=== PATIENT | male | born 1965 | race African-American/Black ===

== ENCOUNTER 2016-06-13 21:43 | Emergency (ER) | payer MEDICAID, OTHER ==
[~2016-06-13] VITALS: Ht 172.7 cm; Wt 75.0 kg
[~2016-06-13 21:43] MED LIST: PROT40 PO
[2016-06-13 23:00] VITALS: BP 115/70
[2016-06-13 23:22] LABS: HEMATOCRIT. 29.7 % (42.0-52.0); HEMOGLOBIN. 10.1 g/dL (14.0-18.0); MEAN CORPUSCULAR HEMOGLOBIN 32.7 pg (28.0-32.0); MEAN CORPUSCULAR HGB CONC 33.9 g/dL (31.0-37.0); MEAN CORPUSCULAR VOLUME 96.4 fL (80.0-94.0); MEAN PLATELET VOLUME 7.3 fl (7.4-10.4); PLATELET 149 x1000/uL (130-400); RED BLOOD CELL COUNT 3.08 mill/uL (4.7-6.1); RED CELL DISTRIBUTION WIDTH 17.6 % (11.6-14.6); WHITE BLOOD COUNT 6.9 x1000/uL (4.5-11.0)
[2016-06-13 23:23] LABS: DIFFERENTIAL COMMENT 1
[2016-06-13 23:36] LABS: ALANINE AMINOTRANSFERASE 36 IU/L (13-61); ANION GAP 11; CALCIUM 8.7 mg/dL (8.5-10.1); CARBON DIOXIDE 29 mEq/L (21-32); CHLORIDE 105 mEq/L (98-107); INDEX HEMOLYSI 1 (1-3); INDEX ICTERIC 2 (1-4); INDEX LIPEMIC 1 (1-3); eGFR > 60 mL/min (>60)
[2016-06-13 23:55] LABS: UREA NITROGEN BLOOD 3 mg/dL (7-21)
[2016-06-13 23:58] LABS: CLARITY URINE CLEAR (CLEAR); COLOR URINE DARK YELLOW (YELLOW); GLUCOSE URINE NEGATIVE (NEGATIVE); KETONES URINE TRACE (NEGATIVE); LEUKOCYTE ESTERASE URINE TRACE (NEGATIVE); NITRITE URINE NEGATIVE (NEGATIVE); OCCULT BLOOD URINE NEGATIVE (NEGATIVE); PROTEIN URINE NEGATIVE (NEGATIVE); SPECIFIC GRAVITY URINE 1.021 (1.005-1.030)
[2016-06-14] MEDS ORDERED: POTASSIUM CHLORIDE 20 MEQ/PACKET PO ONE (00:30)
[2016-06-14 00:45] LABS: SQUAMOUS EPITHELIAL CELL URINE FEW /lpf (RARE/1+)
[2016-06-14 00:46] LABS: BACTERIA URINE NONE SEEN; RBC URINE 0-2 /hpf (0-2); WBC URINE 0-2 /hpf (0-2)
[2016-06-14 02:52] LABS: PLATELET ESTIMATE NORMAL
== END 2016-06-14 01:30 | disposition home or self-care (01) ==
LOC: ER 21:44
DX: M25.512 Pain in left shoulder (principal); R53.1 Weakness; M25.562 Pain in left knee; M25.561 Pain in right knee; E87.6 Hypokalemia
CPT/HCPCS: 36415; 80053; 81001; 85025; 99284

== ENCOUNTER 2016-07-14 12:22 | Emergency (ER) | payer MEDICAID ==
[~2016-07-14] VITALS: Ht 160 cm; Wt 61.0 kg
[2016-07-14 13:09] VITALS: BP 115/69
== END 2016-07-14 15:47 | disposition home or self-care (01) ==
LOC: ER 14:36
DX: L30.9 Dermatitis, unspecified (principal); G89.29 Other chronic pain; M25.572 Pain in left ankle and joints of left foot; M25.571 Pain in right ankle and joints of right foot; D64.9 Anemia, unspecified; F17.210 Nicotine dependence, cigarettes, uncomplicated
CPT/HCPCS: 99283

== ENCOUNTER 2016-08-02 12:37 | Emergency (ER) | payer MEDICAID ==
[~2016-08-02] VITALS: Ht 172.7 cm; Wt 70.0 kg
[2016-08-02 13:39] VITALS: BP 122/67
[2016-08-02] MEDS ORDERED: MIDAZOLAM HCL 2 MG/2 ML VIAL ONE (16:26)
[2016-08-02] MEDS ORDERED: FENTANYL CITRATE/PF 50MCG/ML 2ML VIAL ONE (16:26)
[2016-08-02] MEDS ORDERED: LABETALOL HCL 5MG/ML VIAL 20ML IV ONE (16:27)
[2016-08-02] MEDS ORDERED: VECURONIUM BROMIDE 10 MG/VIAL IV ONE (16:28)
[2016-08-02] MEDS ORDERED: SODIUM CHLORIDE 0.9% 10ML VIAL ONE (16:28)
== END 2016-08-02 18:17 | disposition home or self-care (01) ==
LOC: ER 12:37
DX: L20.9 Atopic dermatitis, unspecified (principal); R20.0 Anesthesia of skin; R20.2 Paresthesia of skin; F17.210 Nicotine dependence, cigarettes, uncomplicated
CPT/HCPCS: 99283; A4216; J2250; J3010; J3490

== ENCOUNTER 2016-12-31 18:44 | Inpatient (IN) | payer MEDICAID, OTHER ==
[2016-12-31] VITALS (7 sets, daily range): BP systolic 126–150; BP diastolic 55–85
[~2016-12-31] VITALS: Ht 172.7 cm; Wt 64.4 kg
[2016-12-31] MEDS ORDERED: SODIUM CHLORIDE 0.9% 1,000 ML IV ONE (19:05)
[2016-12-31] MEDS ORDERED: PANTOPRAZOLE SODIUM 40 MG/VIAL IV STA (19:05)
[2016-12-31] MEDS ORDERED: OCTREOTIDE 1,000 MCG in SODIUM CHLORIDE 0.9% 100 ML IV STA (19:05)
[2016-12-31] MEDS ORDERED: ONDANSETRON HCL 4MG/2ML VIAL IV STA (19:05)
[2016-12-31] MEDS ORDERED: OCTREOTIDE ACETATE 50 MCG/ML 1ML IV STA (19:05)
[2016-12-31] MEDS ORDERED: CEFTRIAXONE 1 G PREMIX 50 ML IV ONE (19:15)
[2016-12-31 19:56] LABS: BASOPHILS % 2.6 % (0.0-2.0); EOSINOPHILS % 0.6 % (0.0-5.0); HEMATOCRIT. 28.7 % (42.0-52.0); HEMOGLOBIN. 9.7 g/dL (14.0-18.0); LYMPHOCYTES % 18.9 % (20.0-50.0); MEAN CORPUSCULAR HEMOGLOBIN 32.2 pg (28.0-32.0); MEAN CORPUSCULAR VOLUME 94.7 fL (80.0-94.0); MEAN PLATELET VOLUME 8.7 fl (7.4-10.4); MONOCYTES % 11.1 % (2.0-8.0); NEUTROPHILS % 66.8 % (40.0-76.0); PLATELET 90 x1000/uL (130-400); RED BLOOD CELL COUNT 3.03 mill/uL (4.7-6.1); RED CELL DISTRIBUTION WIDTH 17.3 % (11.6-14.6)
[2016-12-31 20:03] LABS: CHLORIDE 105 mEq/L (98-107); INR 1.5; PARTIAL THROMBOPLASTIN TIME 26.5 sec (23.4-31.0); PROTHROMBIN TIME 15.6 sec (9.4-11.6)
[2016-12-31 20:11] LABS: CARBON DIOXIDE 25 mEq/L (21-32)
[2016-12-31] MEDS ORDERED: MAGNESIUM/ALUMINUM HYDROXIDE/SIMETHICONE 30ML UDC PO PRN (22:15)
[2016-12-31] MEDS ORDERED: IPRATROPIUM/ALBUTEROL 0.5-3(2.5)MG/3ML NEB INH PRN (22:15)
[2016-12-31] MEDS ORDERED: ACETAMINOPHEN 650MG/20.3ML UDC GT PRN (22:15)
[2016-12-31] MEDS ORDERED: NA PHOS,M-B/NA PHOS,DI-BA ENEMA 118ML PR PRN (22:15)
[2016-12-31] MEDS ORDERED: HYDROCODONE/ACETAMINOPHEN 5/325MG TABLET PO PRN (22:15)
[2016-12-31] MEDS ORDERED: DOCUSATE SODIUM 100MG CAPSULE PO PRN (22:15)
[2016-12-31] MEDS ORDERED: CLONIDINE 0.1MG TABLET PO PRN (22:15)
[2016-12-31] MEDS ORDERED: LORAZEPAM 2MG/ML CPJ IV PRN (22:15)
[2016-12-31] MEDS ORDERED: ACETAMINOPHEN 650MG SUPP PR PRN (22:15)
[2016-12-31] MEDS ORDERED: DIPHENHYDRAMINE 50MG/ML VIAL IV PRN (22:15)
[2016-12-31] MEDS ORDERED: GUAIFENESIN 200MG/10ML SUGAR FREE UDC PO PRN (22:15)
[2016-12-31] MEDS: SODIUM CHLORIDE 0.45% 1,000 ML IV SCH (23:22)
[2016-12-31] MEDS: PANTOPRAZOLE 80 MG in SODIUM CHLORIDE 0.9% 100 ML IV SCH (23:22)
[2016-12-31] MEDS: OCTREOTIDE 1,000 MCG in SODIUM CHLORIDE 0.9% 98 ML IV SCH (23:23)
[2017-01-01] VITALS (79 sets, daily range): BP systolic 97–167; BP diastolic 48–99
[2017-01-01] MEDS ORDERED: POTASSIUM CHLORIDE INJ 40 MEQ in DEXT 5% WATER 250 ML IV NR ×2
[2017-01-01 01:17] LABS: CLARITY URINE CLEAR (CLEAR); COLOR URINE YELLOW (YELLOW); GLUCOSE URINE NEGATIVE (NEGATIVE); KETONES URINE TRACE (NEGATIVE); LEUKOCYTE ESTERASE URINE NEGATIVE (NEGATIVE); NITRITE URINE NEGATIVE (NEGATIVE); OCCULT BLOOD URINE NEGATIVE (NEGATIVE); PH URINE 6.5 (4.5-8.0); PROTEIN URINE NEGATIVE (NEGATIVE); SPECIFIC GRAVITY URINE 1.017 (1.005-1.030); UROBILINOGEN URINE 0.2 E.U./dL (0.2-1.0)
[2017-01-01 01:28] LABS: *AMPHETAMINES SCREEN URINE NEGATIVE (NEGATIVE); *BARBITURATES SCREEN URINE NEGATIVE (NEGATIVE); *BENZODIAZEPINES SCREEN URINE NEGATIVE (NEGATIVE); *COCAINE SCREEN URINE NEGATIVE (NEGATIVE); CANNABINOID URINE SCREEN NEGATIVE (NEGATIVE); METHADONE URINE SCREEN NEGATIVE (NEGATIVE); OPIATES URINE SCREEN NEGATIVE (NEGATIVE); PHENCYCLIDINE URINE SCREEN NEGATIVE (NEGATIVE)
[2017-01-01 05:22] LABS: HEMATOCRIT. 27.8 % (42.0-52.0); HEMOGLOBIN. 9.4 g/dL (14.0-18.0); MEAN CORPUSCULAR HEMOGLOBIN 32.5 pg (28.0-32.0); MEAN CORPUSCULAR VOLUME 95.9 fL (80.0-94.0); MEAN PLATELET VOLUME 9.3 fl (7.4-10.4); PLATELET 85 x1000/uL (130-400); RED CELL DISTRIBUTION WIDTH 17.5 % (11.6-14.6)
[2017-01-01] MEDS: SODIUM CHLORIDE 0.9% INJ 3ML FLUSH IVF SCH ×3 (05:34→21:23)
[2017-01-01 05:57] LABS: CARBON DIOXIDE 27 mEq/L (21-32); CHLORIDE 105 mEq/L (98-107); HDL CHOLESTEROL 79 mg/dL (40-59); LDL CHOLESTEROL 65 mg/dL (5-100)
[2017-01-01] MEDS: PANTOPRAZOLE 80 MG in SODIUM CHLORIDE 0.9% 100 ML IV SCH (08:05)
[2017-01-01] MEDS: ONDANSETRON HCL 4MG/2ML VIAL IV PRN (09:29)
[2017-01-01 10:08] LABS: PLATELET ESTIMATE DECREASED
[2017-01-01] MEDS ORDERED: PHYTONADIONE 10MG/ML AMP SUBCUT NR (11:00)
[2017-01-01] MEDS ORDERED: SIMETHICONE 40 MG/0.6 ML 30ML ONE (11:31)
[2017-01-01] MEDS ORDERED: SODIUM CHLORIDE 0.9% 10ML VIAL ONE (11:31)
[2017-01-01] MEDS ORDERED: PHYTONADIONE 5MG TABLET PO NR (12:00)
[2017-01-01] MEDS ORDERED: FENTANYL CITRATE/PF 50MCG/ML 2ML VIAL ONE (13:33)
[2017-01-01] MEDS ORDERED: MIDAZOLAM HCL 5 MG/5 ML VIAL ONE (13:34)
[2017-01-01 14:29] LABS: HEMATOCRIT 23.8 % (42.0-52.0); HEMOGLOBIN 7.9 g/dL (14.0-18.0)
[2017-01-01] MEDS: SODIUM CHLORIDE 0.45% 1,000 ML IV SCH (15:34)
[2017-01-01] MEDS: OCTREOTIDE 1,000 MCG in SODIUM CHLORIDE 0.9% 98 ML IV SCH (15:34)
[2017-01-02] VITALS (44 sets, daily range): BP systolic 123–154; BP diastolic 54–98
[2017-01-02 01:04] LABS: HEMATOCRIT 29.2 % (42.0-52.0); HEMOGLOBIN 10.3 g/dL (14.0-18.0)
[2017-01-02] MEDS: PANTOPRAZOLE 80 MG in SODIUM CHLORIDE 0.9% 100 ML IV SCH (02:16)
[2017-01-02 05:39] LABS: INR 1.5; PROTHROMBIN TIME 16.1 sec (9.4-11.6)
[2017-01-02] MEDS: SODIUM CHLORIDE 0.9% INJ 3ML FLUSH IVF SCH ×3 (06:00→22:24)
[2017-01-02] MEDS ORDERED: SODIUM BICARBONATE 4% (2.4MEQ) 5ML VIAL IV ONE (07:43)
[2017-01-02] MEDS ORDERED: LIDOCAINE HCL 1% 20ML VIAL (Pyxis) INJ ONE (07:43)
[2017-01-02 10:01] LABS: BASOPHILS % 1.1 % (0.0-2.0); HEMOGLOBIN. 9.9 g/dL (14.0-18.0); LYMPHOCYTES % 20.1 % (20.0-50.0); MEAN CORPUSCULAR HEMOGLOBIN 32.6 pg (28.0-32.0); MEAN PLATELET VOLUME 8.9 fl (7.4-10.4); MONOCYTES % 13.1 % (2.0-8.0); NEUTROPHILS % 63.7 % (40.0-76.0); PLATELET 82 x1000/uL (130-400); RED BLOOD CELL COUNT 3.04 mill/uL (4.7-6.1)
[2017-01-02 10:16] LABS: CARBON DIOXIDE 24 mEq/L (21-32); CHLORIDE 106 mEq/L (98-107)
[2017-01-02] MEDS: SODIUM CHLORIDE 0.45% 1,000 ML IV SCH ×2 (10:37→23:16)
[2017-01-02 17:30] LABS: HEMOGLOBIN 9.8 g/dL (14.0-18.0)
[2017-01-02] MEDS: ONDANSETRON HCL 4MG/2ML VIAL IV PRN (17:44)
[2017-01-02 17:59] LABS: AMMONIA 103 uMol/L (<32)
[2017-01-02] MEDS: LACTULOSE 20G/30ML UDC PO SCH (23:13)
[2017-01-03] VITALS (18 sets, daily range): BP systolic 108–160; BP diastolic 42–92
[2017-01-03] MEDS: SODIUM CHLORIDE 0.9% INJ 3ML FLUSH IVF SCH ×3 (06:22→22:36)
[2017-01-03] MEDS: LACTULOSE 20G/30ML UDC PO SCH ×3 (06:42→22:36)
[2017-01-03 07:18] LABS: BASOPHILS % 0.9 % (0.0-2.0); EOSINOPHILS % 1.5 % (0.0-5.0); HEMATOCRIT. 27.9 % (42.0-52.0); HEMOGLOBIN. 9.6 g/dL (14.0-18.0); LYMPHOCYTES % 18.8 % (20.0-50.0); MEAN CORPUSCULAR HEMOGLOBIN 31.9 pg (28.0-32.0); MEAN CORPUSCULAR VOLUME 92.2 fL (80.0-94.0); MEAN PLATELET VOLUME 9.1 fl (7.4-10.4); MONOCYTES % 14.2 % (2.0-8.0); NEUTROPHILS % 64.6 % (40.0-76.0); PLATELET 90 x1000/uL (130-400); RED BLOOD CELL COUNT 3.03 mill/uL (4.7-6.1); RED CELL DISTRIBUTION WIDTH 16.1 % (11.6-14.6)
[2017-01-03] MEDS ORDERED: PROT40 PO (07:33)
[2017-01-03 07:35] LABS: CARBON DIOXIDE 24 mEq/L (21-32); CHLORIDE 104 mEq/L (98-107)
[2017-01-03] MEDS ORDERED: PROP20TA7 PO (09:51)
[2017-01-03] MEDS ORDERED: POTASSIUM CHLORIDE 20MEQ TABLET SR PO SCH (10:35)
[2017-01-03] MEDS: PANTOPRAZOLE SODIUM 40 MG/VIAL IV SCH ×2 (10:45→22:36)
[2017-01-03] MEDS ORDERED: OCTREOTIDE 1,000 MCG in SODIUM CHLORIDE 0.9% 98 ML IV PRN (11:15)
[2017-01-03 12:32] LABS: HEMATOCRIT 28.3 % (42.0-52.0); HEMOGLOBIN 9.7 g/dL (14.0-18.0)
[2017-01-03 17:12] LABS: HEMATOCRIT 28.9 % (42.0-52.0); HEMOGLOBIN 9.7 g/dL (14.0-18.0)
[2017-01-04] VITALS: BP 119/72
[2017-01-04 04:00] VITALS: BP 126/69
[2017-01-04] MEDS: LACTULOSE 20G/30ML UDC PO SCH (05:15)
[2017-01-04] MEDS: SODIUM CHLORIDE 0.9% INJ 3ML FLUSH IVF SCH (05:16)
[2017-01-04 06:26] LABS: HEMATOCRIT. 27.5 % (42.0-52.0); HEMOGLOBIN. 9.5 g/dL (14.0-18.0); MEAN CORPUSCULAR HEMOGLOBIN 32.5 pg (28.0-32.0); MEAN CORPUSCULAR VOLUME 94.3 fL (80.0-94.0); MEAN PLATELET VOLUME 8.7 fl (7.4-10.4); PLATELET 106 x1000/uL (130-400); RED BLOOD CELL COUNT 2.92 mill/uL (4.7-6.1); RED CELL DISTRIBUTION WIDTH 16.2 % (11.6-14.6)
[2017-01-04 07:01] LABS: AMMONIA 59 uMol/L (<32)
[2017-01-04 08:00] VITALS: BP 113/67
[2017-01-04 08:10] LABS: CARBON DIOXIDE 24 mEq/L (21-32); CHLORIDE 105 mEq/L (98-107)
[2017-01-04] MEDS: PANTOPRAZOLE SODIUM 40 MG/VIAL IV SCH (08:44)
[2017-01-04 08:56] VITALS: BP 113/67
[2017-01-04] MEDS ORDERED: POTASSIUM CHLORIDE 20MEQ TABLET SR PO NR (09:30)
[2017-01-04] MEDS ORDERED: LACT10SO6 PO (11:56)
[2017-01-04 12:00] VITALS: BP 116/64
[2017-01-04 18:02] LABS: PLATELET ESTIMATE DECREASED
== END 2017-01-04 14:20 | disposition home or self-care (01) | DRG 280 ==
LOC: ER 18:44 → CVICU 19:33 → EDBEDREQTM 19:37 → EDBEDREQ 19:37 → ENRESERV 19:52 → 8WST 01-03 17:45
PROVIDERS: ADMIT Family Medicine; ATTEND Family Medicine
PROC: 30233N1 Transfusion of Nonautologous Red Blood Cells into Peripheral Vein, Percutaneous Approach (ICD-10-PCS; 2017-01-01)
PROC: 06L38CZ Occlusion of Esophageal Vein with Extraluminal Device, Via Natural or Artificial Opening Endoscopic (ICD-10-PCS; principal; 2017-01-01 14:00)
PROC: 02HV33Z Insertion of Infusion Device into Superior Vena Cava, Percutaneous Approach (ICD-10-PCS; 2017-01-02)
PROC: B548ZZA Ultrasonography of Superior Vena Cava, Guidance (ICD-10-PCS; 2017-01-02)
DX: K70.31 Alcoholic cirrhosis of liver with ascites (principal); D68.4 Acquired coagulation factor deficiency; E72.20 Disorder of urea cycle metabolism, unspecified; I85.00 Esophageal varices without bleeding; K76.6 Portal hypertension; D69.59 Other secondary thrombocytopenia; D62 Acute posthemorrhagic anemia; F10.288 Alcohol dependence with other alcohol-induced disorder; I10 Essential (primary) hypertension; Z60.2 Problems related to living alone; K92.2 Gastrointestinal hemorrhage, unspecified; K31.89 Other diseases of stomach and duodenum; Z79.899 Other long term (current) drug therapy
CPT/HCPCS: 36415; 36430; 36569; 71010; 73560; 76700; 76937; 80048; 80053; 80061; 80076; 80305; 81003; 82140; 82248; 82962; 83690; 85014; 85018; 85025; 85049; 85384; 85610; 85730; 86850; 86900; 86920; 96361; 96365; 96375; 97162; 97166; 97530; 99291; A4216; A6261; C1725; C9113; J0696; J1200; J2250; J2354; J2405; J3010; J3430; J3480; J3490; J7030; J7050; J7060; P9016

== ENCOUNTER 2019-03-20 01:57 | Inpatient (IN) | payer MEDICAID, OTHER ==
[~2019-03-20] VITALS: Ht 170.2 cm; Wt 73.0 kg
[~2019-03-20 01:57] MED LIST changes: +LACT10SO6 PO; +PROP20TA7 PO
[2019-03-20] MEDS ORDERED: ONDANSETRON HCL 4MG/2ML INJ IV STA (04:28)
[2019-03-20] MEDS ORDERED: SODIUM CHLORIDE 0.9% 1,000 ML IV ONE (04:28)
[2019-03-20] MEDS ORDERED: FAMOTIDINE 20MG/2ML VIAL IV STA (04:28)
[2019-03-20 05:04] LABS: BASOPHILS % 0.4 % (0.0-2.0); HEMATOCRIT. 35.1 % (42.0-52.0); HEMOGLOBIN. 12.3 g/dL (14.0-18.0); MEAN CORPUSCULAR HEMOGLOBIN 34.9 pg (28.0-32.0); MEAN CORPUSCULAR VOLUME 99.5 fL (80.0-94.0); MEAN PLATELET VOLUME 9.4 fl (7.4-10.4); MONOCYTES % 5.9 % (2.0-8.0); NEUTROPHILS % 82.7 % (40.0-76.0); PLATELET 149 x1000/uL (130-400); RED BLOOD CELL COUNT 3.53 mill/uL (4.7-6.1); RED CELL DISTRIBUTION WIDTH 15.7 % (11.6-14.6)
[2019-03-20 05:13] LABS: CHLORIDE 107 mEq/L (98-107)
[2019-03-20 05:14] LABS: INR 1.3; PROTHROMBIN TIME 13.6 sec (9.6-11.0)
[2019-03-20 05:18] LABS: ETHANOL BLOOD < 10 mg/dL
[2019-03-20 07:05] LABS: *AMPHETAMINES SCREEN URINE NEGATIVE (NEGATIVE); *BARBITURATES SCREEN URINE NEGATIVE (NEGATIVE); *BENZODIAZEPINES SCREEN URINE NEGATIVE (NEGATIVE); *COCAINE SCREEN URINE NEGATIVE (NEGATIVE)
[2019-03-20 07:07] LABS: CANNABINOID URINE SCREEN NEGATIVE (NEGATIVE); METHADONE URINE SCREEN NEGATIVE (NEGATIVE); OPIATES URINE SCREEN NEGATIVE (NEGATIVE); PHENCYCLIDINE URINE SCREEN NEGATIVE (NEGATIVE)
[2019-03-20] MEDS: DEXT 5%/LACTATED RINGERS 1,000 ML IV SCH (10:16)
[2019-03-20] MEDS ORDERED: PANTOPRAZOLE 80 MG in SODIUM CHLORIDE 0.9% 100 ML IV SCH (10:30)
[2019-03-20] MEDS ORDERED: DOCUSATE SODIUM 100MG CAPSULE PO PRN (10:30)
[2019-03-20] MEDS ORDERED: ONDANSETRON HCL 4MG/2ML INJ IV PRN (10:30)
[2019-03-20] MEDS ORDERED: GUAIFENESIN 200MG/10ML SUGAR FREE UDC PO PRN (10:30)
[2019-03-20] MEDS ORDERED: ACETAMINOPHEN 325MG TABLET PO PRN (10:30)
[2019-03-20] MEDS ORDERED: IPRATROPIUM/ALBUTEROL 0.5-3(2.5)MG/3ML NEB NEB PRN (10:30)
[2019-03-20] MEDS ORDERED: HYDROCODONE/ACETAMINOPHEN 5/325MG TABLET PO ONE (18:00)
[2019-03-20] MEDS ORDERED: PANTOPRAZOLE SODIUM 40 MG/VIAL IV NR (18:06)
[2019-03-20] MEDS ORDERED: OCTREOTIDE ACETATE 50 MCG/ML 1ML IV SCH (18:08)
[2019-03-20] MEDS ORDERED: OCTREOTIDE 1,000 MCG in SODIUM CHLORIDE 0.9% 98 ML IV SCH ×4 (18:15)
[2019-03-20] MEDS ORDERED: OCTREOTIDE 50 MCG in SODIUM CHLORIDE 0.9% 50 ML IV SCH (19:22)
[2019-03-20] MEDS: PROPRANOLOL HCL 10MG TABLET PO SCH (21:00)
[2019-03-20] MEDS ORDERED: ZOLPIDEM TARTRATE 5MG TABLET PO PRN (21:00)
[2019-03-21 08:44] LABS: BASOPHILS % 0.6 % (0.0-2.0); EOSINOPHILS % 0.8 % (0.0-5.0); HEMATOCRIT. 30.9 % (42.0-52.0); HEMOGLOBIN. 10.8 g/dL (14.0-18.0); LYMPHOCYTES % 23.1 % (20.0-50.0); MEAN CORPUSCULAR HEMOGLOBIN 35.2 pg (28.0-32.0); MEAN PLATELET VOLUME 8.8 fl (7.4-10.4); MONOCYTES % 10.6 % (2.0-8.0); NEUTROPHILS % 64.9 % (40.0-76.0); PLATELET 118 x1000/uL (130-400); RED BLOOD CELL COUNT 3.06 mill/uL (4.7-6.1); RED CELL DISTRIBUTION WIDTH 15.9 % (11.6-14.6)
[2019-03-21 08:50] LABS: INR 1.3; PROTHROMBIN TIME 13.4 sec (9.6-11.0)
[2019-03-21 08:54] LABS: CHLORIDE 111 mEq/L (98-107)
[2019-03-21] MEDS: PROPRANOLOL HCL 10MG TABLET PO SCH ×3 (09:00→21:00)
[2019-03-21] MEDS: PANTOPRAZOLE SODIUM 40 MG/VIAL IV SCH ×2 (09:52→17:47)
[2019-03-21] MEDS ORDERED: FENTANYL CITRATE/PF 50MCG/ML 2ML VIAL ONE (13:56)
[2019-03-21] MEDS ORDERED: MIDAZOLAM HCL 5 MG/5 ML VIAL ONE (13:56)
[2019-03-21] MEDS ORDERED: SIMETHICONE 40 MG/0.6 ML 30ML ONE (13:56)
[2019-03-21] MEDS ORDERED: DIAZEPAM 5 MG/ML 2ML CPJ ONE (14:00)
[2019-03-21] MEDS ORDERED: FENTANYL CITRATE/PF 50MCG/ML 2ML VIAL IV PRN (14:00)
[2019-03-21] MEDS ORDERED: MIDAZOLAM HCL 5 MG/5 ML VIAL IV PRN (14:01)
[2019-03-21] MEDS ORDERED: DIAZEPAM 5 MG/ML 2ML CPJ IV PRN (14:03)
[2019-03-21 18:39] VITALS: BP 130/79
[2019-03-21 19:01] VITALS: BP 130/79
[2019-03-21 20:00] VITALS: BP 102/62
[2019-03-22] VITALS: BP 111/66
[2019-03-22] MEDS: DEXT 5%/LACTATED RINGERS 1,000 ML IV SCH (02:57)
[2019-03-22 04:00] VITALS: BP 100/62
[2019-03-22 08:00] VITALS: BP 106/67
[2019-03-22] MEDS: PROPRANOLOL HCL 10MG TABLET PO SCH (09:00)
[2019-03-22] MEDS ORDERED: PANTOPRAZOLE SODIUM 40 MG/VIAL IV SCH (09:00)
[2019-03-22 12:00] VITALS: BP 118/66
[2019-03-22 13:56] VITALS: BP 118/66
== END 2019-03-22 15:34 | disposition home or self-care (01) | DRG 241 ==
LOC: ER 01:57 → 6WST 03-21 05:20 → ENRESERV 03-21 17:05
PROVIDERS: ADMIT Internal Medicine; ATTEND Internal Medicine
PROC: 0DB68ZX Excision of Stomach, Via Natural or Artificial Opening Endoscopic, Diagnostic (ICD-10-PCS; principal; 2019-03-21)
DX: K29.71 Gastritis, unspecified, with bleeding (principal); I85.11 Secondary esophageal varices with bleeding; K76.6 Portal hypertension; E44.0 Moderate protein-calorie malnutrition; D62 Acute posthemorrhagic anemia; E83.51 Hypocalcemia; K70.30 Alcoholic cirrhosis of liver without ascites; F10.10 Alcohol abuse, uncomplicated; I10 Essential (primary) hypertension; I86.4 Gastric varices; K31.89 Other diseases of stomach and duodenum; Z68.25 Body mass index [BMI] 25.0-25.9, adult; Z79.899 Other long term (current) drug therapy
CPT/HCPCS: 36415; 71045; 74176; 80053; 80076; 80305; 80320; 82140; 82248; 83036; 83605; 84484; 85025; 86850; 86900; 88305; 88312; 88313; 93970; 96361; 96365; 96367; 96375; 99285; C9113; J2250; J2354; J2405; J3010; J3490; J7030; J7050; G0480

== ENCOUNTER 2021-04-15 16:58 | Emergency (ER) | payer MEDICAID ==
[~2021-04-15] VITALS: Ht 172.7 cm; Wt 80.0 kg
[2021-04-15 19:30] VITALS: BP 118/63
[2021-04-15] MEDS ORDERED: ONDA4TAB5 MT (20:42)
== END 2021-04-15 20:55 | disposition home or self-care (01) ==
LOC: ER 16:58
DX: F10.129 Alcohol abuse with intoxication, unspecified (principal); Y90.9 Presence of alcohol in blood, level not specified; M25.571 Pain in right ankle and joints of right foot; I12.9 Hypertensive chronic kidney disease with stage 1 through stage 4 chronic kidney disease, or unspecified chronic kidney disease; N18.9 Chronic kidney disease, unspecified; R56.9 Unspecified convulsions
CPT/HCPCS: 73560; 73600; 82962; 99284

== ENCOUNTER 2022-01-09 06:19 | Inpatient (IN) | payer MEDICAID, OTHER ==
[~2022-01-09] VITALS: Ht 152.4 cm; Wt 68.9 kg
[~2022-01-09 06:19] MED LIST changes: +ONDA4TAB5 MT
[2022-01-09] MEDS ORDERED: ONDANSETRON HCL 4MG/2ML INJ IV STA (06:48)
[2022-01-09] MEDS ORDERED: PANTOPRAZOLE SODIUM 40 MG/VIAL IV STA (06:48)
[2022-01-09] MEDS ORDERED: SODIUM CHLORIDE 0.9% 1,000 ML IV ONE (07:00)
[2022-01-09] MEDS ORDERED: ONDANSETRON HCL 4MG/2ML INJ IV NR (08:00)
[2022-01-09 08:07] LABS: BASOPHILS % 1.5 % (0.0-2.0); EOSINOPHILS % 1.6 % (0.0-5.0); HEMATOCRIT. 35.7 % (42.0-52.0); HEMOGLOBIN. 12.4 g/dL (14.0-18.0); LYMPHOCYTES % 13.2 % (20.0-50.0); MEAN CORPUSCULAR HEMOGLOBIN 33.7 pg (28.0-32.0); MEAN PLATELET VOLUME 9.4 fl (7.4-10.4); MONOCYTES % 8.9 % (2.0-8.0); NEUTROPHILS % 74.8 % (40.0-76.0); PLATELET 127 x1000/uL (130-400); RED BLOOD CELL COUNT 3.68 mill/uL (4.7-6.1); RED CELL DISTRIBUTION WIDTH 18.5 % (11.6-14.6)
[2022-01-09 08:12] LABS: CHLORIDE 107 mEq/L (98-107)
[2022-01-09 08:13] LABS: INR 1.3; PROTHROMBIN TIME 13.3 sec (9.6-11.0)
[2022-01-09 08:19] LABS: ETHANOL BLOOD 92 mg/dL
[2022-01-09] MEDS: PANTOPRAZOLE SODIUM 40 MG/VIAL IV NR (08:55)
[2022-01-09 11:13] LABS: CLARITY URINE CLEAR (CLEAR); COLOR URINE YELLOW (YELLOW); KETONES URINE 1+ (NEGATIVE); OCCULT BLOOD URINE NEGATIVE (NEGATIVE); PROTEIN URINE TRACE (NEGATIVE); SPECIFIC GRAVITY URINE 1.025 (1.005-1.030)
[2022-01-09 11:14] LABS: LEUKOCYTE ESTERASE URINE TRACE (NEGATIVE); NITRITE URINE NEGATIVE (NEGATIVE); UROBILINOGEN URINE 0.2 E.U./dL (0.2-1.0)
[2022-01-09] MEDS ORDERED: METOCLOPRAMIDE HCL 10MG/2ML VIAL IV ONE (11:30)
[2022-01-09] MEDS ORDERED: CLONIDINE 0.1MG TABLET PO PRN (15:30)
[2022-01-09] MEDS ORDERED: DOCUSATE SODIUM 100MG CAPSULE PO PRN (15:30)
[2022-01-09] MEDS ORDERED: HYDROCODONE/ACETAMINOPHEN 5/325MG TABLET PO PRN (15:30)
[2022-01-09] MEDS ORDERED: ONDANSETRON HCL 4MG/2ML INJ IV PRN (15:30)
[2022-01-09] MEDS ORDERED: LORAZEPAM 0.5MG TABLET PO PRN (15:30)
[2022-01-09] MEDS ORDERED: IPRATROPIUM/ALBUTEROL 0.5-3(2.5)MG/3ML NEB HHN PRN (15:30)
[2022-01-09] MEDS ORDERED: ACETAMINOPHEN 325MG TABLET PO PRN ×2 (15:30)
[2022-01-09] MEDS ORDERED: NALOXONE HCL 0.4MG/ML VIAL IV PRN (15:45)
[2022-01-09] MEDS: PANTOPRAZOLE SODIUM 40 MG/VIAL IV SCH (17:00)
[2022-01-09] MEDS ORDERED: OCTREOTIDE 1,000 MCG in SODIUM CHLORIDE 0.9% 100 ML IV ONE (17:00)
[2022-01-09] MEDS ORDERED: OCTREOTIDE 1,000 MCG in SODIUM CHLORIDE 0.9% 95 ML IV ONE (17:30)
[2022-01-09] MEDS ORDERED: FOLIC ACID 1 MG, THIAMINE HCL 100 MG, MVI, ADULT NO.1 10 ML in DEXTROSE 5% WATER 1,000 ML IV ONE ×4 (17:30)
[2022-01-09] MEDS: CHLORDIAZEPOXIDE 25MG CAPSULE PO SCH (22:11)
[2022-01-09] MEDS ORDERED: GABA-532 (22:17)
[2022-01-09] MEDS ORDERED: PROP10TA10 PO (22:17)
[2022-01-09] MEDS ORDERED: NIZOS TP (22:17)
[2022-01-09] MEDS ORDERED: ONDA4TAB50 PO (22:17)
[2022-01-09] MEDS ORDERED: ACETAMINOPHEN (22:17)
[2022-01-09] MEDS ORDERED: FERR-63 PO (22:17)
[2022-01-09] MEDS ORDERED: PANT40TA51 PO (22:17)
[2022-01-09] MEDS ORDERED: FOLI-43 PO (22:17)
[2022-01-10 01:14] VITALS: BP 123/73
[2022-01-10 04:00] VITALS: BP 125/72
[2022-01-10] MEDS: CHLORDIAZEPOXIDE 25MG CAPSULE PO SCH ×3 (06:24→22:15)
[2022-01-10 07:12] LABS: BASOPHILS % 0.5 % (0.0-2.0); HEMATOCRIT. 28.2 % (42.0-52.0); HEMOGLOBIN. 9.9 g/dL (14.0-18.0); LYMPHOCYTES % 15.5 % (20.0-50.0); MEAN CORPUSCULAR VOLUME 97.1 fL (80.0-94.0); MEAN PLATELET VOLUME 9.5 fl (7.4-10.4); MONOCYTES % 10.4 % (2.0-8.0); NEUTROPHILS % 71.6 % (40.0-76.0); PLATELET 112 x1000/uL (130-400); RED CELL DISTRIBUTION WIDTH 18.3 % (11.6-14.6)
[2022-01-10 08:05] LABS: CHLORIDE 104 mEq/L (98-107)
[2022-01-10 08:14] LABS: TOTAL IRON BINDING CAPACITY 287 ug/dL (250-450)
[2022-01-10 08:20] VITALS: BP 105/67
[2022-01-10] MEDS ORDERED: PANTOPRAZOLE SODIUM 40 MG/VIAL IV SCH (09:00)
[2022-01-10] MEDS: PANTOPRAZOLE SODIUM 40 MG/VIAL IV SCH ×2 (09:00→18:17)
[2022-01-10] MEDS ORDERED: INFLUENZA VACCINE 05/PF 0.5 ML SYRINGE IM ONE (10:00)
[2022-01-10 11:29] LABS: *AMPHETAMINES SCREEN URINE NEGATIVE (NEGATIVE); *BARBITURATES SCREEN URINE NEGATIVE (NEGATIVE); *BENZODIAZEPINES SCREEN URINE NEGATIVE (NEGATIVE); *COCAINE SCREEN URINE NEGATIVE (NEGATIVE); CANNABINOID URINE SCREEN NEGATIVE (NEGATIVE); METHADONE URINE SCREEN NEGATIVE (NEGATIVE); OPIATES URINE SCREEN NEGATIVE (NEGATIVE); PHENCYCLIDINE URINE SCREEN NEGATIVE (NEGATIVE)
[2022-01-10 12:05] VITALS: BP 96/52
[2022-01-10 13:34] LABS: FERRITIN 71 ng/mL (22-322)
[2022-01-10 15:24] LABS: VITAMIN B12 SERUM 1605 pg/mL (211-911)
[2022-01-10 16:20] VITALS: BP 97/62
[2022-01-10] MEDS: LACTULOSE 20G/30ML UDC PO SCH ×2 (18:17→22:00)
[2022-01-10 18:22] LABS: HEMATOCRIT 27.1 % (42.0-52.0); HEMOGLOBIN 9.4 g/dL (14.0-18.0)
[2022-01-10 20:00] VITALS: BP 102/62
[2022-01-11] VITALS: BP 106/67
[2022-01-11 01:05] LABS: HEMATOCRIT 28.8 % (42.0-52.0); HEMOGLOBIN 9.7 g/dL (14.0-18.0)
[2022-01-11 04:00] VITALS: BP 101/57
[2022-01-11] MEDS: CHLORDIAZEPOXIDE 25MG CAPSULE PO SCH ×3 (05:53→22:09)
[2022-01-11] MEDS: LACTULOSE 20G/30ML UDC PO SCH ×3 (05:57→22:00)
[2022-01-11 07:15] LABS: BASOPHILS % 1.3 % (0.0-2.0); HEMATOCRIT. 28.1 % (42.0-52.0); HEMOGLOBIN. 9.8 g/dL (14.0-18.0); LYMPHOCYTES % 20.4 % (20.0-50.0); MEAN CORPUSCULAR HEMOGLOBIN 34.6 pg (28.0-32.0); MEAN CORPUSCULAR VOLUME 99.1 fL (80.0-94.0); MEAN PLATELET VOLUME 9.4 fl (7.4-10.4); MONOCYTES % 10.6 % (2.0-8.0); NEUTROPHILS % 62.7 % (40.0-76.0); PLATELET 117 x1000/uL (130-400); RED BLOOD CELL COUNT 2.83 mill/uL (4.7-6.1); RED CELL DISTRIBUTION WIDTH 18.7 % (11.6-14.6)
[2022-01-11 08:00] VITALS: BP 98/63
[2022-01-11 08:31] LABS: CHLORIDE 107 mEq/L (98-107)
[2022-01-11] MEDS: PANTOPRAZOLE SODIUM 40 MG/VIAL IV SCH ×2 (08:42→16:22)
[2022-01-11] MEDS: FOLIC ACID 1MG TABLET PO SCH (08:42)
[2022-01-11] MEDS: MULTIVITAMINS,THER W-MINERALS TABLET PO SCH (08:42)
[2022-01-11] MEDS: THIAMINE HCL 100MG TABLET PO SCH (08:42)
[2022-01-11] MEDS ORDERED: POTASSIUM CHLORIDE 20MEQ TABLET SR PO NR (10:15)
[2022-01-11 12:00] VITALS: BP 97/56
[2022-01-11 13:11] LABS: HEMATOCRIT 26.9 % (42.0-52.0); HEMOGLOBIN 9.2 g/dL (14.0-18.0)
[2022-01-11] MEDS ORDERED: OCTREOTIDE 1,000 MCG in SODIUM CHLORIDE 0.9% 98 ML IV SCH (15:30)
[2022-01-11 16:00] VITALS: BP 112/60
[2022-01-11] MEDS: OCTREOTIDE 1,000 MCG in SODIUM CHLORIDE 0.9% 95 ML IV SCH (16:21)
[2022-01-11 18:26] LABS: HEMOGLOBIN 9.8 g/dL (14.0-18.0)
[2022-01-11 20:00] VITALS: BP 103/62
[2022-01-12] VITALS: BP 105/63
[2022-01-12] MEDS: DEXT 5%/0.9% NACL 1,000 ML IV SCH ×2 (00:45→17:06)
[2022-01-12 00:54] LABS: HEMATOCRIT 26.7 % (42.0-52.0); HEMOGLOBIN 8.8 g/dL (14.0-18.0)
[2022-01-12 04:00] VITALS: BP 102/54
[2022-01-12] MEDS: LACTULOSE 20G/30ML UDC PO SCH ×3 (06:00→23:01)
[2022-01-12] MEDS: CHLORDIAZEPOXIDE 25MG CAPSULE PO SCH ×3 (06:22→17:09)
[2022-01-12 07:17] LABS: CHLORIDE 108 mEq/L (98-107)
[2022-01-12 07:18] LABS: INR 1.2; PROTHROMBIN TIME 13.2 sec (9.6-11.0)
[2022-01-12 07:29] LABS: BASOPHILS % 0.9 % (0.0-2.0); EOSINOPHILS % 5.5 % (0.0-5.0); HEMATOCRIT. 25.3 % (42.0-52.0); HEMOGLOBIN. 8.8 g/dL (14.0-18.0); MEAN CORPUSCULAR HEMOGLOBIN 34.3 pg (28.0-32.0); MEAN CORPUSCULAR VOLUME 98.9 fL (80.0-94.0); MEAN PLATELET VOLUME 9.4 fl (7.4-10.4); MONOCYTES % 10.1 % (2.0-8.0); NEUTROPHILS % 69.5 % (40.0-76.0); PLATELET 115 x1000/uL (130-400); RED BLOOD CELL COUNT 2.56 mill/uL (4.7-6.1); RED CELL DISTRIBUTION WIDTH 19.1 % (11.6-14.6)
[2022-01-12 08:00] VITALS: BP 93/57
[2022-01-12] MEDS: MULTIVITAMINS,THER W-MINERALS TABLET PO SCH ×2 (08:51→09:00)
[2022-01-12] MEDS: FOLIC ACID 1MG TABLET PO SCH ×2 (08:51→09:00)
[2022-01-12] MEDS: THIAMINE HCL 100MG TABLET PO SCH ×2 (08:52→09:00)
[2022-01-12] MEDS: PANTOPRAZOLE SODIUM 40 MG/VIAL IV SCH (08:54)
[2022-01-12] MEDS ORDERED: MIDAZOLAM HCL 2 MG/2 ML VIAL ONE ×2 (09:44)
[2022-01-12] MEDS ORDERED: LIDOCAINE HCL 1% 10 MG/ML 10ML VIAL ONE (09:44)
[2022-01-12] MEDS: OCTREOTIDE 1,000 MCG in SODIUM CHLORIDE 0.9% 95 ML IV SCH (11:30)
[2022-01-12 12:00] VITALS: BP 120/67
[2022-01-12 13:16] LABS: HEMATOCRIT 26.1 % (42.0-52.0)
[2022-01-12 16:00] VITALS: BP 103/57
[2022-01-12 20:00] VITALS: BP 117/74
[2022-01-12] MEDS: CARVEDILOL 3.125 MG TABLET PO SCH (20:26)
[2022-01-12] MEDS: RIFAXIMIN 550 MG TABLET PO SCH (20:30)
[2022-01-13] VITALS (7 sets, daily range): BP systolic 92–114; BP diastolic 44–72
[2022-01-13] MEDS: DEXT 5%/0.9% NACL 1,000 ML IV SCH ×2 (03:40→12:24)
[2022-01-13] MEDS: LACTULOSE 20G/30ML UDC PO SCH ×2 (06:00→12:24)
[2022-01-13] MEDS ORDERED: OMEPRAZOLE 20MG CAPSULE EXTENDED RELEASE PO SCH (07:20)
[2022-01-13] MEDS: THIAMINE HCL 100MG TABLET PO SCH (08:51)
[2022-01-13] MEDS: CARVEDILOL 3.125 MG TABLET PO SCH (08:51)
[2022-01-13] MEDS: RIFAXIMIN 550 MG TABLET PO SCH (08:51)
[2022-01-13] MEDS: FOLIC ACID 1MG TABLET PO SCH (08:52)
[2022-01-13] MEDS: CHLORDIAZEPOXIDE 25MG CAPSULE PO SCH ×2 (08:52→17:11)
[2022-01-13] MEDS: MULTIVITAMINS,THER W-MINERALS TABLET PO SCH (08:55)
[2022-01-13] MEDS: OCTREOTIDE 1,000 MCG in SODIUM CHLORIDE 0.9% 95 ML IV SCH (09:40)
[2022-01-13] MEDS ORDERED: RIFA550T PO (09:54)
[2022-01-13] MEDS ORDERED: MULT-379 MT (09:54)
[2022-01-13] MEDS ORDERED: THIA100T72 PO (09:54)
[2022-01-13] MEDS ORDERED: CHLO25CA10 MT (09:54)
[2022-01-13] MEDS ORDERED: COR3 PO (09:54)
[2022-01-13] MEDS ORDERED: PROT40 PO (09:54)
== END 2022-01-13 21:25 | disposition home or self-care (01) | DRG 280 ==
LOC: ER 06:19 → 6WST 13:48 → EDBEDREQTM 13:55 → EDBEDREQ 13:55 → ENRESERV 22:19
PROVIDERS: ADMIT Internal Medicine; ATTEND Internal Medicine
PROC: 06L38CZ Occlusion of Esophageal Vein with Extraluminal Device, Via Natural or Artificial Opening Endoscopic (ICD-10-PCS; principal; 2022-01-12)
DX: K74.60 Unspecified cirrhosis of liver (principal); K70.9 Alcoholic liver disease, unspecified; I85.11 Secondary esophageal varices with bleeding; D69.6 Thrombocytopenia, unspecified; K76.6 Portal hypertension; E46 Unspecified protein-calorie malnutrition; E72.20 Disorder of urea cycle metabolism, unspecified; R18.8 Other ascites; K31.89 Other diseases of stomach and duodenum; F10.229 Alcohol dependence with intoxication, unspecified; D53.9 Nutritional anemia, unspecified; F17.210 Nicotine dependence, cigarettes, uncomplicated; Z20.822 Contact with and (suspected) exposure to COVID-19; I10 Essential (primary) hypertension; F10.239 Alcohol dependence with withdrawal, unspecified; F41.9 Anxiety disorder, unspecified; K21.9 Gastro-esophageal reflux disease without esophagitis; I86.4 Gastric varices; Z59.00 Homelessness unspecified; Z68.29 Body mass index [BMI] 29.0-29.9, adult; Z79.899 Other long term (current) drug therapy
CPT/HCPCS: 36415; 76700; 80048; 80053; 80076; 80305; 80320; 81003; 82140; 82248; 82607; 82728; 82746; 83540; 83550; 85014; 85018; 85025; 85044; 86850; 86900; 87426; 93005; 99285; C1893; C9113; J2250; J2354; J2405; J2765; J3411; J3490; J7030; J7042; J7050; J7070; G0480